=== PATIENT | male | born 1995 | race African-American/Black ===

== ENCOUNTER 2022-07-07 20:11 | Emergency (ER) | payer MEDICAID, SELFPAY ==
[2022-07-07 20:42] VITALS: BP 111/55; PULSE 95; RESP 20; O2SAT 96
--- NOTE | 2022-07-07 20:56 | DI.RAD.S_ITS ---
PROCEDURE: XR KNEE LT 3V INDICATIONS: knee pain TECHNIQUE: 3 views of the knee were acquired. COMPARISON: None. FINDINGS: Bones: No fractures or dislocations. There is slight lateral migration of the tibia with respect to the femur. No suspicious bony lesions. Soft tissues: There is a small joint effusion. No suspicious soft tissue calcifications. IMPRESSION: 1. No acute fracture or dislocation. 2. Slight lateral migration with the tibia with respect to the femur may reflect sequelae of degenerative changes or soft tissue injury. Further evaluation may be obtained with MRI. 3. Small joint effusion. Dictated by: Rudy Souza M.D. on 07/07/2022 at 23:39 Approved by: Ruyd Souza M.D. on 07/07/2022 at 23:40
[2022-07-07 22:40] LABS: Urine N gonorrhoeae NOT DETECTED
[2022-07-07 22:45] LABS: Urine Chlamydia NOT DETECTED
== END 2022-07-07 22:38 | disposition left against medical advice (07) ==
PROVIDERS: Emergency Provider Emergency Medicine
DX: M25.562 Pain in left knee (principal); R30.0 Dysuria
CPT/HCPCS: 73562; 81003; 87491; 87591; 99282

== ENCOUNTER 2022-07-22 23:04 | Emergency (ER) | payer MEDICAID, SELFPAY ==
[2022-07-22 23:10] VITALS: BP 123/57; PULSE 78; RESP 20; TEMP 37.1; O2SAT 100; BMI 23.8
--- NOTE | 2022-07-23 00:02 | ED_ITS ---
HPI - Head Injury General Chief complaint: Head Injury Stated complaint: hit his head on a pole at work now has a bump Time Seen by Provider: 07/22/22 23:59 Source: patient Mode of arrival: Ambulatory Limitations: no limitations History of Present Illness HPI Narrative: Otherwise healthy 26-year-old male here for evaluation of injuries that he sustained around his right eye he states he was at work and turned and hit his right side of his head on pole. There was no loss of consciousness. He has had headache and some dizziness since then. He does have bruise above his right eye. No other interventions prior to arrival. Related Data Allergies Allergy/AdvReac Type Severity Reaction Status Date / Time No Known Drug Allergies Allergy Verified 07/07/22 20:55 Review of Systems Constitutional Constitutional: Reports system reviewed and no additional complaints, except as documented Eyes Eyes: Reports system reviewed and no additional complaints, except as documented Integumentary/Breasts Skin/Breast: Reports system reviewed and no additional complaints, except as documented Neurologic Neurologic: Reports system reviewed and no additional complaints, except as documented Patient History Alcohol type: wine Substance Use Type: does not use Exam Initial Vital Signs Initial Vital Signs: Vital Signs Temperature 98.7 F 07/22/22 23:10 Pulse Rate 78 07/22/22 23:10 Respiratory Rate 20 07/22/22 23:10 Blood Pressure 123/57 L 07/22/22 23:10 Pulse Oximetry 100 07/22/22 23:10 Oxygen Delivery Method 07/22/22 23:10 Const General: cooperative and healthy appearing [facility] Other: No tenderness over bridge of nose. Eyes EOM: EOM intact bilaterally Other: Contusion in the upper outer portion of the right eye. There her step-offs around the orbital rim. Skin Other: Bruising to the upper outer portion of the right eye Neuro General: patient alert, patient awake, patient oriented x3 and moves all extremities Course Vital Signs Vital signs: Vital Signs - 8 hr 07/22/22 23:10 07/23/22 00:15 Temperature 98.7 F Pulse Rate 78 60 Respiratory Rate 20 20 Blood Pressure 123/57 L 121/60 Pulse Oximetry 100 99 Oxygen Delivery Method Room Air Room Air MDM - Head Injury Differential Diagnosis Differential diagnosis: Likely concussion without loss of consciousness, closed head injury and postconcussion syndrome Condition is:: Well Controlled Discussed with:: Patient MDM Narrative Medical decision making narrative: He does have a contusion to the upper outer portion of the right eye. Does not appear to be any step-off under this area. His extraocular muscles are intact. No other injuries from the event. The event did occur approximately 8 hours ago. UA case she for radiologic studies. We did discuss conservative measures that he can try at home to help with the symptoms. He was given return precautions and follow-up instructions. He expressed understanding and agreement. Discharge Plan Departure Patient Disposition: Home Clinical Impression: Contusion of eye, right Instructions: DI for Eye Contusion Activity Restrictions/Additional Instructions: You can take Tylenol for any headaches. Putting ice over the area will be helpful as well. Return to the emergency department for any new symptoms. Stand Alone Forms: Patient Portal/API, Work Release Note
[2022-07-23 00:15] VITALS: BP 121/60; PULSE 60; RESP 20; O2SAT 99
== END 2022-07-23 00:17 | disposition home or self-care (01) ==
PROVIDERS: Emergency Provider Emergency Medicine
DX: S00.11XA Contusion of right eyelid and periocular area, initial encounter (principal); W22.8XXA Striking against or struck by other objects, initial encounter
CPT/HCPCS: 99281